=== PATIENT | female | born 1940 | race Caucasian/White ===

== ENCOUNTER 2019-07-26 20:38 | Observation (INO) ==
[2019-07-26 23:02] LABS: Prothrombin Time 11.1 Seconds (9.4-12.1)
[2019-07-26 23:04] LABS: Activated Partial Thrombo Time 31.9 Seconds (26.0-36.0)
[2019-07-26 23:08] LABS: Basophils % 0.6 %; Eosinophils # 0.3 K/mcL (0.0-0.6); Eosinophils % 4.9 %; Hematocrit 27.4 % (35.3-44.9); Hemoglobin 8.3 g/dL (11.5-15.4); Immature Granulocytes % 0.3 % (0-4); Lymphocytes # 2.6 K/mcL (0.6-4.6); Lymphocytes % 41.1 %; Mean Corpuscular HGB Conc 30.3 g/dL (31.6-35.5); Mean Corpuscular Hemoglobin 24.6 pg (28.0-33.3); Mean Corpuscular Volume 81.3 fL (83.0-100.0); Monocytes # 0.7 K/mcL (0.0-1.3); Monocytes % 11.2 %; Neutrophils # 2.7 K/mcL (1.6-8.9); Platelet Count 304 K/mcL (140-400); Red Blood Count 3.37 M/mcL (3.82-4.97); Red Cell Distribution Width 15.6 % (11.5-14.5); Segmented Neutrophils % 41.9 %; White Blood Count 6.3 K/mcL (4.3-11.1)
[2019-07-26 23:17] LABS: BUN/Creatinine Ratio 33 (6-26); Blood Urea Nitrogen 19 mg/dL (8-23); Calcium 9.1 mg/dL (8.6-10.3); Carbon Dioxide 29 mEq/L (23-29); Chloride 108 mEq/L (98-107); Glucose 95 mg/dL (70-105); Osmolality,Calculated 294 (280-300); Potassium 3.7 mEq/L (3.5-5.1); Sodium 141 mEq/L (136-145); eGFR For African Americans > 60 (> 60); eGFR For Non-African Americans > 60 (> 60)
[2019-07-27] MEDS ORDERED: Acetaminophen 325 MG TABLET PO PRN (00:36)
[2019-07-27] MEDS ORDERED: Naloxone 0.4 MG/ML INJ IVP PRN (00:36)
[2019-07-27] MEDS ORDERED: Ondansetron 4 MG/2 ML VIAL IVP PRN (00:36)
[2019-07-27 01:55] LABS: Prothrombin Time 11.5 Seconds (9.4-12.1)
[2019-07-27 02:10] LABS: % Iron Saturation 3 % (15-50); Iron 17 mcg/dL (50-170); Transferrin 347 mg/dL (203-362)
[2019-07-27 02:11] LABS: Alanine Aminotransferase 15 Units/L (7-52); Albumin/Globulin Ratio 1.5 (1.1-2.2); Alkaline Phosphatase 60 Units/L (34-104); Aspartate Amino Transferase 20 Units/L (13-39); BUN/Creatinine Ratio 33 (6-26); Bilirubin,Total 0.5 mg/dL (0.3-1.0); Blood Urea Nitrogen 18 mg/dL (8-23); Calcium 9.2 mg/dL (8.6-10.3); Carbon Dioxide 27 mEq/L (23-29); Chloride 106 mEq/L (98-107); Globulin 2.6 g/dL (2.4-3.5); Glucose 86 mg/dL (70-105); Osmolality,Calculated 293 (280-300); Phosphorous 4.1 mg/dL (2.7-4.5); Potassium 3.8 mEq/L (3.5-5.1); Sodium 141 mEq/L (136-145); Total Protein 6.6 g/dL (6.4-8.9); eGFR For African Americans > 60 (> 60); eGFR For Non-African Americans > 60 (> 60)
[2019-07-27 02:37] LABS: Folate 20.2 ng/mL (3.0-16.0)
[2019-07-27] MEDS: 0.9 % Sodium Chloride 1,000 ML IVC SCH ×2 (02:38→10:28)
[2019-07-27 07:00] LABS: Basophils # 0.1 K/mcL (0.0-0.2); Basophils % 0.8 %; Eosinophils # 0.3 K/mcL (0.0-0.6); Eosinophils % 5.2 %; Hematocrit 27.3 % (35.3-44.9); Hemoglobin 8.3 g/dL (11.5-15.4); Immature Granulocytes % 0.3 % (0-4); Lymphocytes # 2.5 K/mcL (0.6-4.6); Lymphocytes % 38.6 %; Mean Corpuscular HGB Conc 30.4 g/dL (31.6-35.5); Mean Corpuscular Hemoglobin 24.9 pg (28.0-33.3); Monocytes # 0.6 K/mcL (0.0-1.3); Platelet Count 297 K/mcL (140-400); Red Blood Count 3.33 M/mcL (3.82-4.97); Red Cell Distribution Width 15.6 % (11.5-14.5); Segmented Neutrophils % 46.1 %; White Blood Count 6.6 K/mcL (4.3-11.1)
[2019-07-27] MEDS ORDERED: Gabapentin 400 MG CAPSULE PO SCH (09:00)
[2019-07-27] MEDS ORDERED: Loratadine/Pseudophed (12 HR) 1 EACH TABLET PO SCH (09:00)
[2019-07-27] MEDS ORDERED: amLODIPine 5 MG TABLET PO SCH ×2 (09:00→21:00)
[2019-07-27 10:46] VITALS: BP 148/77
== END 2019-07-27 15:55 | disposition home or self-care (01) ==
LOC: EMEROOARM 20:38 → 3ANU 20:38 → SUATTDRO 23:52 → 3ANU 07-27 00:24
PROVIDERS: ADMIT Student in an Organized Health Care Education/Training Program; ATTEND Internal Medicine